=== PATIENT | female | born 1995 | race Caucasian/White ===

== ENCOUNTER 2021-09-02 07:57 | Inpatient (IN) | payer MEDICAID ==
[~2021-09-02] VITALS: Ht 152.4 cm; Wt 75.3 kg
[2021-09-02] MEDS ORDERED: LIDOCAINE HCL 1% 20ML VIAL (Pyxis) INJ INFIL PRN (13:00)
[2021-09-02] MEDS ORDERED: MISOPROSTOL 100MCG TABLET VG PRN (13:00)
[2021-09-02] MEDS ORDERED: DEXT 5%/LACTATED RINGERS 1,000 ML IV SCH (13:00)
[2021-09-02] MEDS: LACTATED RINGERS 1,000 ML IV SCH ×2 (13:29→22:42)
[2021-09-02] MEDS ORDERED: DEXT 5%/LR + PITOCIN 20UNITS/L 1,000 ML IV SCH (14:00)
[2021-09-02 14:40] LABS: CLARITY URINE CLEAR (CLEAR); COLOR URINE YELLOW (YELLOW); KETONES URINE TRACE (NEGATIVE); LEUKOCYTE ESTERASE URINE 2+ (NEGATIVE); NITRITE URINE NEGATIVE (NEGATIVE); OCCULT BLOOD URINE TRACE (NEGATIVE); PROTEIN URINE TRACE (NEGATIVE); SPECIFIC GRAVITY URINE 1.019 (1.005-1.030); UROBILINOGEN URINE 0.2 E.U./dL (0.2-1.0)
[2021-09-02 14:50] LABS: CHLORIDE 105 mEq/L (98-107)
[2021-09-02 14:56] LABS: D-DIMER 4.23 mg/L FEU (<0.50); INR 0.9; PARTIAL THROMBOPLASTIN TIME 26.8 sec (23.4-31.0); PROTHROMBIN TIME 9.8 sec (9.6-11.0)
[2021-09-02 15:03] LABS: *AMPHETAMINES SCREEN URINE NEGATIVE (NEGATIVE); *BARBITURATES SCREEN URINE NEGATIVE (NEGATIVE); *BENZODIAZEPINES SCREEN URINE NEGATIVE (NEGATIVE)
[2021-09-02 15:04] LABS: *COCAINE SCREEN URINE NEGATIVE (NEGATIVE); CANNABINOID URINE SCREEN NEGATIVE (NEGATIVE); METHADONE URINE SCREEN NEGATIVE (NEGATIVE); OPIATES URINE SCREEN NEGATIVE (NEGATIVE); PHENCYCLIDINE URINE SCREEN NEGATIVE (NEGATIVE)
[2021-09-02 15:14] LABS: HEPATITIS B SURFACE ANTIGEN NEGATIVE
[2021-09-02] MEDS ORDERED: ROPIVACAINE HCL 2MG/ML (0.2%) 100ML BAG IR NR (16:15)
[2021-09-02] MEDS ORDERED: ROPIVACAINE HCL/PF EPIDURAL 200 ML EPI SCH (16:30)
[2021-09-02] MEDS: BUTORPHANOL TARTRATE 2 MG/ML VIAL IV PRN ×2 (16:40→19:15)
[2021-09-03] MEDS ORDERED: CITRIC ACID/SODIUM CITRATE SOLN 30ML UDC PO NR (07:06)
[2021-09-03] MEDS ORDERED: BISACODYL 10MG SUPP PR PRN (07:30)
[2021-09-03] MEDS ORDERED: DIPHENHYDRAMINE 25MG CAPSULE PO PRN (07:30)
[2021-09-03] MEDS ORDERED: ONDANSETRON HCL 4MG/2ML INJ IV PRN (07:30)
[2021-09-03] MEDS ORDERED: LANOLIN OINT 7GM TUBE TOP PRN (07:30)
[2021-09-03] MEDS ORDERED: RHO(D) IMMUNE GLOBULIN 300 MCG/SYR IM PRN (07:30)
[2021-09-03] MEDS ORDERED: HEMORRHOIDAL SUPP PR PRN (07:30)
[2021-09-03] MEDS ORDERED: IBUPROFEN 400MG TABLET PO PRN (07:30)
[2021-09-03] MEDS ORDERED: NALOXONE HCL 0.4 MG/ML 1ML VIAL IV PRN (08:30)
[2021-09-03] MEDS ORDERED: KETOROLAC 30MG/ML VIAL IV PRN (08:30)
[2021-09-03] MEDS ORDERED: NALOXONE HCL 0.4MG/ML VIAL IV PRN (08:30)
[2021-09-03] MEDS ORDERED: SUMATRIPTAN SUCCINATE 25MG TABLET PO SCH (10:00)
[2021-09-03 11:20] VITALS: BP 117/79
[2021-09-03 12:20] VITALS: BP 120/77
[2021-09-03 16:00] VITALS: BP 115/68
[2021-09-03] MEDS: DEXT 5%/LR + PITOCIN 20UNITS/L 1,000 ML IV SCH (16:31)
[2021-09-03 19:30] VITALS: BP 120/77
[2021-09-03] MEDS: MAGNESIUM/ALUMINUM HYDROXIDE/SIMETHICONE 30ML UDC PO SCH (21:41)
[2021-09-03] MEDS: DOCUSATE SODIUM 100MG CAPSULE PO SCH (21:41)
[2021-09-03] MEDS: SIMETHICONE 80MG TABLET CHEW PO SCH (21:42)
[2021-09-04] VITALS: BP 12/82
[2021-09-04] MEDS: DEXT 5%/LR + PITOCIN 20UNITS/L 1,000 ML IV SCH (01:08)
[2021-09-04 04:00] VITALS: BP 101/68
[2021-09-04 06:28] LABS: BASOPHILS % 0.2 % (0.0-2.0); EOSINOPHILS % 0.4 % (0.0-5.0); HEMATOCRIT. 23.5 % (36.0-48.0); HEMOGLOBIN. 7.8 g/dL (12.0-16.0); LYMPHOCYTES % 13.8 % (20.0-50.0); MEAN CORPUSCULAR HEMOGLOBIN 28.2 pg (28.0-32.0); MEAN CORPUSCULAR VOLUME 85.4 fL (81.0-99.0); MEAN PLATELET VOLUME 10.3 fl (7.4-10.4); MONOCYTES % 6.2 % (2.0-8.0); NEUTROPHILS % 79.4 % (40.0-76.0); PLATELET 214 x1000/uL (130-400); RED BLOOD CELL COUNT 2.75 mill/uL (4.2-5.4); RED CELL DISTRIBUTION WIDTH 14.2 % (11.6-14.6)
[2021-09-04 08:00] VITALS: BP 124/76
[2021-09-04] MEDS: MAGNESIUM/ALUMINUM HYDROXIDE/SIMETHICONE 30ML UDC PO SCH ×4 (08:36→20:28)
[2021-09-04] MEDS: PRENATAL VIT/FE FUMARATE/FA TABLET PO SCH (08:36)
[2021-09-04] MEDS: FERROUS SULFATE 325MG TABLET PO SCH ×3 (08:36→16:39)
[2021-09-04] MEDS: SIMETHICONE 80MG TABLET CHEW PO SCH ×4 (08:37→20:29)
[2021-09-04] MEDS: IBUPROFEN 800MG TABLET PO PRN (12:43)
[2021-09-04] MEDS: ACETAMINOPHEN WITH CODEINE 300/30MG TABLET PO PRN ×2 (15:40→20:29)
[2021-09-04 16:00] VITALS: BP 133/81
[2021-09-04 20:00] VITALS: BP 129/81
[2021-09-04] MEDS: DOCUSATE SODIUM 100MG CAPSULE PO SCH (20:28)
[2021-09-05] MEDS: ACETAMINOPHEN WITH CODEINE 300/30MG TABLET PO PRN ×3 (03:09→14:17)
[2021-09-05 04:00] VITALS: BP 147/99
[2021-09-05] MEDS ORDERED: LIDOCAINE HCL 1% 20ML VIAL (Pyxis) INJ ONE (07:58)
[2021-09-05 08:00] VITALS: BP 125/89
[2021-09-05] MEDS: MAGNESIUM/ALUMINUM HYDROXIDE/SIMETHICONE 30ML UDC PO SCH ×3 (09:01→17:51)
[2021-09-05] MEDS: FERROUS SULFATE 325MG TABLET PO SCH ×3 (09:01→17:51)
[2021-09-05] MEDS: PRENATAL VIT/FE FUMARATE/FA TABLET PO SCH (09:01)
[2021-09-05] MEDS: SIMETHICONE 80MG TABLET CHEW PO SCH ×3 (09:02→17:51)
[2021-09-05 16:00] VITALS: BP 143/89
[2021-09-05 19:30] VITALS: BP 136/84
[2021-09-05] MEDS: IBUPROFEN 800MG TABLET PO PRN (20:21)
[2021-09-06 04:00] VITALS: BP 136/88
[2021-09-06] MEDS: IBUPROFEN 800MG TABLET PO PRN (04:24)
[2021-09-06 08:15] VITALS: BP 134/93
[2021-09-06 08:39] LABS: BASOPHILS % 0.3 % (0.0-2.0); EOSINOPHILS % 0.9 % (0.0-5.0); HEMATOCRIT. 22.2 % (36.0-48.0); HEMOGLOBIN. 7.4 g/dL (12.0-16.0); LYMPHOCYTES % 14.7 % (20.0-50.0); MEAN CORPUSCULAR HEMOGLOBIN 28.8 pg (28.0-32.0); MEAN CORPUSCULAR VOLUME 86.6 fL (81.0-99.0); MEAN PLATELET VOLUME 9.2 fl (7.4-10.4); MONOCYTES % 6.7 % (2.0-8.0); NEUTROPHILS % 77.4 % (40.0-76.0); PLATELET 285 x1000/uL (130-400); RED BLOOD CELL COUNT 2.57 mill/uL (4.2-5.4); RED CELL DISTRIBUTION WIDTH 14.7 % (11.6-14.6)
[2021-09-06] MEDS: FERROUS SULFATE 325MG TABLET PO SCH (08:51)
[2021-09-06] MEDS: PRENATAL VIT/FE FUMARATE/FA TABLET PO SCH (08:51)
[2021-09-06] MEDS: MAGNESIUM/ALUMINUM HYDROXIDE/SIMETHICONE 30ML UDC PO SCH (08:51)
[2021-09-06] MEDS: SIMETHICONE 80MG TABLET CHEW PO SCH (08:52)
== END 2021-09-06 10:30 | disposition home or self-care (01) | DRG 540 ==
LOC: OBSVTOIN 07:57 → 8 EST LDRP 07:57 → 8EST 09-03 18:19
PROVIDERS: ADMIT Obstetrics & Gynecology; ATTEND Obstetrics & Gynecology
PROC: 10D00Z1 Extraction of Products of Conception, Low, Open Approach (ICD-10-PCS; principal; 2021-09-03)
DX: O62.0 Primary inadequate contractions (principal); O99.02 Anemia complicating childbirth; Z20.822 Contact with and (suspected) exposure to COVID-19; Z37.0 Single live birth; Z3A.40 40 weeks gestation of pregnancy; Z90.710 Acquired absence of both cervix and uterus
CPT/HCPCS: 36415; 76805; 76818; 80053; 80305; 81003; 84550; 85025; 85379; 85384; 86592; 86703; 86762; 86850; 86900; 87340; 87426; 88307; 99281; J0595; J1885; J2590; J2795; J3490; J7120